=== PATIENT | female | born 1995 | race African-American/Black ===

== ENCOUNTER 2023-09-26 23:49 | Emergency (ER) | payer MEDICAID ==
[~2023-09-26] VITALS: Ht 170.2 cm; Wt 63.0 kg
[2023-09-26 23:53] VITALS: BP 96/51; PULSE 94; RESP 18; TEMP 98.2; O2SAT 100
[2023-09-27] MEDS ORDERED: LEVETIRACETAM 1000MG PREMIX 100 ML IV ONE (00:30)
== END 2023-09-27 05:37 | disposition left against medical advice (07) ==
LOC: ER 23:49
DX: R56.9 Unspecified convulsions (principal)
CPT/HCPCS: 82962; 99283

== ENCOUNTER 2024-01-04 00:10 | Emergency (ER) | payer MEDICAID ==
[~2024-01-04] VITALS: Ht 185.4 cm; Wt 64.0 kg
[2024-01-04 00:16] VITALS: TEMP 98.8; O2SAT 98
[2024-01-04] MEDS: LEVETIRACETAM 1000MG PREMIX 100 ML IV ONE (01:08)
[2024-01-04 01:13] LABS: HEMATOCRIT. 36.8 % (36.0-48.0); HEMOGLOBIN. 11.9 g/dL (12.0-16.0); MEAN CORPUSCULAR HEMOGLOBIN 27.6 pg (28.0-32.0); MEAN CORPUSCULAR HGB CONC 32.3 g/dL (31.0-37.0); MEAN CORPUSCULAR VOLUME 85.4 fL (81.0-99.0); MEAN PLATELET VOLUME 8.7 fl (7.4-10.4); PLATELET 267 x1000/uL (130-400); RED BLOOD CELL COUNT 4.31 mill/uL (4.2-5.4); RED CELL DISTRIBUTION WIDTH 15.2 % (11.6-14.6); WHITE BLOOD COUNT 13.6 x1000/uL (4.5-11.0)
[2024-01-04 01:13] LABS: *AMPHETAMINES SCREEN URINE PRESUMPTIVE POSITIVE (NEGATIVE); *BARBITURATES SCREEN URINE NEGATIVE (NEGATIVE); *BENZODIAZEPINES SCREEN URINE PRESUMPTIVE POSITIVE (NEGATIVE); *COCAINE SCREEN URINE NEGATIVE (NEGATIVE); CANNABINOID URINE SCREEN NEGATIVE (NEGATIVE); ECSTASY MDMA SCREEN URINE NEGATIVE (NEGATIVE); METHADONE URINE SCREEN NEGATIVE (NEGATIVE); OPIATES URINE SCREEN NEGATIVE (NEGATIVE); PHENCYCLIDINE URINE SCREEN NEGATIVE (NEGATIVE)
[2024-01-04 01:20] LABS: CHLORIDE 105 mEq/L (98-107); SODIUM 137 mEq/L (136-145)
[2024-01-04 01:21] LABS: CALCIUM 8.8 mg/dL (8.7-10.4); CARBON DIOXIDE 27 mEq/L (21-32); DIFFERENTIAL COMMENT 1
[2024-01-04 01:26] LABS: CREATININE 1.2 mg/dL (0.6-1.0); GLUCOSE 100 mg/dL (70-105); UREA NITROGEN BLOOD 9 mg/dL (9-23)
[2024-01-04 01:33] LABS: ETHANOL BLOOD < 10 mg/dL (<10)
[2024-01-04 01:42] LABS: HCG SCREEN NEGATIVE
[2024-01-04 03:47] LABS: PLATELET ESTIMATE NORMAL
[2024-01-04] MEDS ORDERED: KEPP500 MT (05:06)
[2024-01-04] MEDS: LEVETIRACETAM 500MG TABLET PO NR (05:37)
[2024-01-04] MEDS: SODIUM CHLORIDE 0.9% 1,000 ML IV ONE (05:46)
[2024-01-04 06:00] VITALS: BP 102/54; PULSE 107; RESP 21
== END 2024-01-04 07:40 | disposition home or self-care (01) ==
LOC: ER 00:25
DX: R56.9 Unspecified convulsions (principal)
CPT/HCPCS: 80305; 80048; 80320; 84703; 85025; 36415; 70450; 96365; 96366; 99285; J1953; J7030; G0480

== ENCOUNTER 2024-02-20 11:42 | Emergency (ER) | payer MEDICAID, OTHER ==
[~2024-02-20] VITALS: Ht 185.4 cm; Wt 55.0 kg
[~2024-02-20 11:42] MED LIST: KEPP500 MT
[2024-02-20 11:54] VITALS: O2SAT 99
[2024-02-20] MEDS: ACETAMINOPHEN 325MG TABLET PO ONE (13:44)
[2024-02-20] MEDS ORDERED: TOPUD MT (15:21)
[2024-02-20] MEDS ORDERED: IBUP-1523 MT (15:21)
[2024-02-20 15:50] VITALS: BP 112/78; PULSE 88; RESP 18; TEMP 37.05852; O2SAT 98
== END 2024-02-20 15:51 | disposition home or self-care (01) ==
LOC: ER 11:42
DX: S20.211A Contusion of right front wall of thorax, initial encounter (principal); Y08.89XA Assault by other specified means, initial encounter; Y93.89 Activity, other specified; Y92.89 Other specified places as the place of occurrence of the external cause; Y99.8 Other external cause status
CPT/HCPCS: 71101; 81025; 99283

== ENCOUNTER 2024-04-03 19:00 | Emergency (ER) | payer BC, MEDICAID ==
[~2024-04-03] VITALS: Ht 175.3 cm; Wt 66.0 kg
[~2024-04-03 19:00] MED LIST changes: +IBUP-1523 MT; +TOPUD MT
[2024-04-03 19:22] VITALS: BP 107/75; PULSE 89; TEMP 98.2; O2SAT 100
[2024-04-03] MEDS: FLUORESCEIN SODIUM 1MG/STRIP BOTHEYE ONE (20:36)
[2024-04-03] MEDS ORDERED: ERYT1OIN6 EACHEYE (20:44)
[2024-04-03 20:50] VITALS: RESP 17
== END 2024-04-03 20:55 | disposition home or self-care (01) ==
LOC: ER 19:00
DX: H57.89 Other specified disorders of eye and adnexa (principal)
CPT/HCPCS: 99283